=== PATIENT | male | born 1985 | race African-American/Black ===

== ENCOUNTER 2023-11-15 14:24 | Emergency (ER) | payer MEDICAID ==
[~2023-11-15] VITALS: Ht 165.1 cm; Wt 70.0 kg
[2023-11-15 14:28] VITALS: O2SAT 100
[2023-11-15 14:52] LABS: BASOPHILS % 0.6 % (0.0-2.0); EOSINOPHILS % 1.8 % (0.0-5.0); HEMATOCRIT. 47.1 % (42.0-52.0); HEMOGLOBIN. 15.1 g/dL (14.0-18.0); LYMPHOCYTES % 35.6 % (20.0-50.0); MEAN CORPUSCULAR HEMOGLOBIN 27.2 pg (28.0-32.0); MEAN CORPUSCULAR VOLUME 85.1 fL (80.0-94.0); MEAN PLATELET VOLUME 11.1 fl (7.4-10.4); MONOCYTES % 6.5 % (2.0-8.0); NEUTROPHILS % 55.5 % (40.0-76.0); PLATELET 153 x1000/uL (130-400); RED BLOOD CELL COUNT 5.54 mill/uL (4.7-6.1); RED CELL DISTRIBUTION WIDTH 12.9 % (11.6-14.6); WHITE BLOOD COUNT 6.2 x1000/uL (4.5-11.0)
[2023-11-15 15:06] LABS: CHLORIDE 105 mEq/L (98-107); POTASSIUM 4.1 mEq/L (3.5-5.1); SODIUM 140 mEq/L (136-145)
[2023-11-15 15:07] LABS: CARBON DIOXIDE 19 mEq/L (21-32)
[2023-11-15 15:08] LABS: CALCIUM 9.5 mg/dL (8.7-10.4)
[2023-11-15 15:13] LABS: CREATININE 0.8 mg/dL (0.6-1.3); GLUCOSE 98 mg/dL (70-105); UREA NITROGEN BLOOD 14 mg/dL (9-23)
[2023-11-15] MEDS ORDERED: LEVETIRACETAM 500MG/5ML CUP PO NR (15:45)
[2023-11-15] MEDS: LEVETIRACETAM 500MG TABLET PO NR (15:50)
[2023-11-15 16:20] LABS: CLARITY URINE CLEAR (CLEAR); COLOR URINE YELLOW (YELLOW); GLUCOSE URINE NEGATIVE (NEGATIVE); KETONES URINE TRACE (NEGATIVE); LEUKOCYTE ESTERASE URINE NEGATIVE (NEGATIVE); NITRITE URINE NEGATIVE (NEGATIVE); OCCULT BLOOD URINE NEGATIVE (NEGATIVE); PH URINE 5.5 (4.5-8.0); PROTEIN URINE 1+ (NEGATIVE); SPECIFIC GRAVITY URINE 1.021 (1.005-1.030); UROBILINOGEN URINE 0.2 E.U./dL (0.2-1.0)
[2023-11-15] MEDS: ACETAMINOPHEN 325MG TABLET PO NR (16:22)
[2023-11-15 16:48] LABS: BACTERIA URINE NONE SEEN; RBC URINE NONE SEEN /hpf (0-2); SQUAMOUS EPITHELIAL CELL URINE NONE SEEN /lpf (RARE/1+); WBC URINE NONE SEEN /hpf (0-2)
[2023-11-15] MEDS ORDERED: LEVE1000 MT (16:50)
[2023-11-15 18:15] VITALS: BP 117/69; PULSE 89; RESP 17; TEMP 98
== END 2023-11-15 18:17 | disposition home or self-care (01) ==
LOC: ER 14:24
DX: R56.9 Unspecified convulsions (principal); R51.9 Headache, unspecified
CPT/HCPCS: 36415; 71045; 80048; 81003; 85025; 99284